=== PATIENT | male | born 1965 | race Hispanic/Latino ===

== ENCOUNTER 2017-02-02 06:25 | Emergency (ER) | payer OTHER ==
[~2017-02-02] VITALS: Ht 170.2 cm; Wt 91.4 kg
[~2017-02-02 06:25] MED LIST: NO HOME MEDS; PENICILLN VK500 MG OR; PERIDEX0.12 % MT; TRAMADOL HCL50 MG OR
[2017-02-02 06:56] LABS: HEMATOCRIT 42.6 % (39.0-50.0); HEMOGLOBIN 14.8 g/dl (14.0-18.0); IMMATURE GRANULOCYTES 0.1 % (0.0-1.0); MEAN CELL VOLUME 90.6 fL CALC (80.0-100.0); MEAN CORPUSCULAR HGB 31.5 pG CALC (26.0-32.0); MEAN CORPUSCULAR HGB CONC 34.7 g/L CALC (32.0-36.0); NEUT# 4.05 thou/uL (1.82-7.42); RED BLOOD COUNT 4.7 mill/uL (4.70-6.10); RED CELL DISTRI WIDTH 13.2 % (11.5-15.5)
[2017-02-02 06:58] LABS: URINE BILIRUBIN - DIPSTICK NEGATIVE (NEGATIVE); URINE BLOOD DIPSTICK NEGATIVE (NEGATIVE); URINE CLARITY SLIGHT CLOUDY; URINE COLOR YELLOW; URINE GLUCOSE - DIPSTICK NEGATIVE (NEGATIVE); URINE KETONE NEGATIVE (NEGATIVE); URINE LEUK ESTERASE NEGATIVE (NEGATIVE); URINE NITRITE - DIPSTICK NEGATIVE (Negative); URINE PROTEIN - DIPSTICK NEGATIVE (NEG-TRACE); URINE SPECIFIC GRAVITY >=1.030; URINE UROBILINOGEN - DIPSTICK 0.2 E.U./dL (0.2)
[2017-02-02 07:13] LABS: ALBUMIN 4.5 g/dL (3.2-5.0); ALKALINE PHOSPHATASE 82 u/l (38-126); AMYLASE 72 u/l (30-110); ANION GAP 19 (6-22 (CALC)); BILIRUBIN, TOTAL 0.6 mg/dL (0.0-1.4); BUN 22 mg/dL (9-20); BUN/CREATININE RATIO 31 (12-20 (CALC)); CALCIUM 9.6 mg/dL (8.4-10.2); CARBON DIOXIDE 21 mmol/l (22-30); CHLORIDE 104 mmol/l (95-108); CREATININE 0.7 mg/dL (0.7-1.3); GFR > 60 ML/MIN (>=60 (CALC)); GFR FOR AFR.AMER. > 60 ML/MIN (>=60 (CALC)); GLUCOSE 168 mg/dL (75-110); LIPASE 80 u/l (23-300); POTASSIUM 3.9 mmol/l (3.5-5.1); SGOT/AST 24 u/l (17-59); SGPT/ALT 36 u/l (21-72); SODIUM 140 mmol/l (137-146)
[2017-02-02 07:48] LABS: MYOGLOBIN 47 ng/mL (0 - 121)
[2017-02-02] MEDS ORDERED: TRAMADOL HYDROC50 MG PO (10:03)
[2017-02-02] MEDS ORDERED: ZOFRAN ODT4 MG PO (10:03)
[2017-02-02] MEDS ORDERED: NEXIUM40 M1 PO (10:03)
[2017-02-02 10:10] VITALS: BP 118/72
== END 2017-02-02 10:15 | disposition home or self-care (01) | DRG 392 ==
LOC: ED 06:25
PROVIDERS: Emergency Medicine
DX: R10.11 Right upper quadrant pain (principal); K82.9 Disease of gallbladder, unspecified

== ENCOUNTER 2020-12-01 07:13 | Emergency (ER) | payer OTHER ==
[~2020-12-01] VITALS: Ht 172.7 cm; Wt 92.7 kg
[~2020-12-01 07:13] MED LIST changes: +NEXIUM40 M1 PO; +TRAMADOL HYDROC50 MG PO; +ZOFRAN ODT4 MG PO
[2020-12-01 09:06] VITALS: BP 114/74
[2020-12-01] MEDS ORDERED: ZPAK PO (09:12)
== END 2020-12-01 09:38 | disposition home or self-care (01) | DRG 177 ==
LOC: ED 07:13
DX: U07.1 COVID-19 (principal); J12.82 Pneumonia due to coronavirus disease 2019

== ENCOUNTER 2020-12-04 10:50 | Inpatient (IN) | payer OTHER ==
[~2020-12-04] VITALS: Ht 172.7 cm; Wt 77.0 kg
[~2020-12-04 10:50] MED LIST changes: +ZPAK PO
--- NOTE | 2020-12-04 10:50 | NUR ---
PT TO ROOM 15 VIA WHEELCHAIR. BEDSIDE TRIAGE COMPLETED
[2020-12-04 11:18] LABS: HEMATOCRIT 41.2 % (39.0-50.0); HEMOGLOBIN 14.4 g/dl (14.0-18.0); IMMATURE GRANULOCYTES 0.3 % (0.0-5.0); MEAN CELL VOLUME 87.8 fL CALC (80.0-100.0); MEAN CORPUSCULAR HGB 30.7 pG CALC (26.0-32.0); NEUT# 6.23 thou/uL (1.82-7.42); RED BLOOD COUNT 4.69 mill/uL (4.70-6.10); RED CELL DISTRI WIDTH 12.2 % (11.5-15.5)
--- NOTE | 2020-12-04 11:30 | NUR ---
PT SITTING SEMI-UPRIGHT IN BED, NO CONCERNS VOICED.
[2020-12-04 11:35] LABS: ALBUMIN 3.6 g/dL (3.2-5.0); ALKALINE PHOSPHATASE 65 u/l (38-126); ANION GAP 16 (6-22 (CALC)); BILIRUBIN, TOTAL 0.5 mg/dL (0.0-1.4); BUN 11 mg/dL (9-20); BUN/CREATININE RATIO 18 (12-20 (CALC)); CARBON DIOXIDE 22 mmol/l (22-30); CHLORIDE 96 mmol/l (95-108); CREATININE 0.6 mg/dL (0.7-1.3); GFR > 60 ML/MIN (>=60 (CALC)); GFR FOR AFR.AMER. > 60 ML/MIN (>=60 (CALC)); LIPASE 251 u/l (23-300); POTASSIUM 3.8 mmol/l (3.5-5.1); SGOT/AST 39 u/l (17-59); SODIUM 130 mmol/l (137-146); TOTAL PROTEIN 7.3 g/dL (6.3-8.2)
[2020-12-04 11:36] LABS: D-DIMER 0.74 mg/L (0.19-0.60)
[2020-12-04 11:39] LABS: ACT PARTIAL THROMBO TIME 29.2 SECONDS (20.0-32.5); PROTHROMBIN TIME 10.4 SECONDS (9.0-12.5)
--- NOTE | 2020-12-04 12:25 | NUR ---
IV MEDS INFUSING WITHOUT DIFFICULTY, STABLE ON MONITOR. AT BEDSIDE. CALL LIGHT WITHIN REACH.
--- NOTE | 2020-12-04 13:43 | NUR ---
IV MEDS COMPLETED. PT REMAINS STABLE ON MONITOR. PENDING ADMISSION TO [facility].
--- NOTE | 2020-12-04 13:49 | NUR ---
REPORT GIVEN TO ERIKA TONEY ON [facility]. PT ADMITTED TO [facility].
--- NOTE | 2020-12-04 14:05 | NUR ---
PT ARRIVED TO FLOOR VIA WHEELCHAIR ACCOMPANIED BY ER STAFF. PT ALERT AND ORIENTED X4. NO APPARENT DISTRESS NOTED. RESPIRATIONS EVEN AND UNLABORED. SOB WITH EXERTION. NON-PRODUCTIVE COUGH NOTED. O2 @ 2L/M VIA NC. PT AMBULATORY FROM CHAIR TO BED. DISCUSSED POC AND SAFETY PRECAUTIONS. PT VERBALIZED UNDERSTANDING. ENCOURAGED AND EDUCATED PT TO PRONE AND GET OOB FOR MEALS. IV SITES APPEAR HEALTHY. [place] IN PLACE. ORIENTED TO ROOM AND CALL LIGHT SYSTEM. PT DENIES ANY PAIN OR DISCOMFORT. NO CURRENT WANTS OR NEEDS. CALL LIGHT WITHIN REACH. WILL CONTINUE TO MONITOR.
[2020-12-04 14:40] VITALS: BP 115/68
--- NOTE | 2020-12-04 16:27 | NUR ---
REMDESIVIR INFUSING COMPLETE. PT TOLERATED WELL. PT PRONING AT THIS TIME. O2 @ 2L/M CARYL NC. IVF INFUSING WITHOUT DIFFICULTY. CALL LIGHT WITHIN REACH. WILL CONTINUE TO MONITOR.
--- NOTE | 2020-12-04 17:56 | NUR ---
CALLED FOR UPDATE, PASSCODE VERIFIED. UPDATED AT THIS TIME.
--- NOTE | 2020-12-04 20:43 | NUR ---
PATIENT LAYING SUPINE AT THIS TIME. RESPIRATIONS NONLABORED. O2 VIA N/C 2L IN PLACE. DENIES PAIN. HEART RATE REGULAR. ASSESSMENT COMPLETED AND CHARTED. IVF INFUSING ORDERED. ON TELEMETRY. BED IN LOW POSITION. CALL LIGHT WITHIN REACH.
[2020-12-04 23:52] VITALS: BP 114/72
--- NOTE | 2020-12-05 01:24 | NUR ---
THIS NURSE WAS WALKING THROUGH CHECKING ON PATIENT'S WHEN WAS NOTICED PATIENT GRABBING FOR EMESIS BAG. PATIENT UP AWAKE AND COUGHING. NO EMESIS. COOL COMPRESSES TO HEAD AND NECK GIVEN FOR COMFORT. IF PATIENT CONDITION NOT IMPROVED, WILL CALL MD FOR [employer] [employer].
[2020-12-05 04:06] VITALS: BP 106/64
--- NOTE | 2020-12-05 05:00 | NUR ---
NO NEW COMPLAINTS OF NAUSEA. RESTING QUIETLY SUPINE. BED IN LOW POSITION. CALL LIGHT WITHIN REACH.
[2020-12-05 06:20] LABS: HEMATOCRIT 42.2 % (39.0-50.0); HEMOGLOBIN 14.4 g/dl (14.0-18.0); IMMATURE GRANULOCYTES 0.4 % (0.0-5.0); MEAN CELL VOLUME 91.1 fL CALC (80.0-100.0); MEAN CORPUSCULAR HGB 31.1 pG CALC (26.0-32.0); MEAN CORPUSCULAR HGB CONC 34.1 g/dL CAL (32.0-36.0); NEUT# 6.29 thou/uL (1.82-7.42); RED BLOOD COUNT 4.63 mill/uL (4.70-6.10); RED CELL DISTRI WIDTH 12.5 % (11.5-15.5)
[2020-12-05 06:36] LABS: ALBUMIN 3.2 g/dL (3.2-5.0); ALKALINE PHOSPHATASE 55 u/l (38-126); ANION GAP 14 (6-22 (CALC)); BILIRUBIN, TOTAL 0.5 mg/dL (0.0-1.4); BUN 13 mg/dL (9-20); BUN/CREATININE RATIO 27 (12-20 (CALC)); CARBON DIOXIDE 22 mmol/l (22-30); CHLORIDE 103 mmol/l (95-108); CREATININE 0.5 mg/dL (0.7-1.3); GFR > 60 ML/MIN (>=60 (CALC)); GFR FOR AFR.AMER. > 60 ML/MIN (>=60 (CALC)); POTASSIUM 4.3 mmol/l (3.5-5.1); SGOT/AST 42 u/l (17-59); SODIUM 134 mmol/l (137-146); TOTAL PROTEIN 6.9 g/dL (6.3-8.2)
--- NOTE | 2020-12-05 06:55 | NUR ---
REPORT RECEIVED FROM ASHLEY SCHUMACHER
[2020-12-05 07:00] LABS: C-REACTIVE PROTEIN 16.5 mg/dL (0-0.9)
--- NOTE | 2020-12-05 09:00 | NUR ---
PT OOB RESTING IN RECLINER,A&O X3;VS OBTAINED AND ASSESSMENT COMPLETED;PT DENIES ANY CURRENT PAIN OR DISCOMFORTS,PAIN SCALE AND REPORTING EDUCATED;RESPIRATIONS EVEN AND UNLABORED ON O2 @ 2L VIA NC, CLEAR/DIMINISHED LUNG SOUNDS NOTED;ABDOMEN SOFT ON PALPATION AND ACTIVE IN ALL 4 QUADRANTS;STRONG PEDAL PULSES;SKIN INTACT;TELE MONITORING IN PLACE;#20G TO RH INFUSING NS @ 100ML/HR,SITE APPEARS HEALTHY;#20G TO LAC ALSO FLUSHED AND PATENT,SITE APPEARS HEALTHY;PT DENIES ANY ADDITIONAL NEEDS AND IS ENCOURAGED TO CALL FOR ASSISTANCE IF NEEDED;PT REMAINS IN AIR/CONTACT PRECAUTIONS DUE TO COVID19 DX;ALL SAFETY PRECAUTIONS REMAIN IN PLACE WITH BED IN THE LOWEST POSITION AND CALL LIGHT IN REACH;WILL CONTINUE TO MONITOR
[2020-12-05 09:08] VITALS: BP 109/71
--- NOTE | 2020-12-05 10:32 | NUR ---
AT BEDSIDE DISCUSSING POC.
[2020-12-05 10:37] VITALS: BP 108/64
--- NOTE | 2020-12-05 11:25 | NUR ---
PT APPEARS TO BE SLEEPING IN LEFT SIDE LAYING POSITION;RESPIRATIONS APPEAR EVEN AND UNLABORED ON O2 @ 2L VIA NC;NO S/S OF DISTRESS NOTED;TELE MONITORING IN PLACE;IV FLUIDS CONTINUE AT 10ML/HR;ALL SAFETY PRECAUTIONS REMAIN IN PLACE WITH CALL LIGHT IN REACH;WILL CONTINUE TO MONITOR
[2020-12-05 15:08] VITALS: BP 98/70
--- NOTE | 2020-12-05 15:25 | NUR ---
PT APPEARS TO BE SLEEPING IN SEMI FOWLERS POSITION;RESPIRATIONS EVEN AND UNLABORED ON O2 @ 2L VIA NC;NO S/S OF DISTRESS NOTED;TELE MONITORING IN PLACE;IV SITE PATENT INFUSING NS WITH EASE PER ORDER;ALL SAFETY PRECAUTIONS REMAIN IN PLACE WITH BED IN THE LOWEST POSITION AND CALL LIGHT IN REACH;WILL CONTINUE TO MONITOR
[2020-12-05 18:30] VITALS: BP 119/66
--- NOTE | 2020-12-05 20:02 | NUR ---
PATIENT LAYS WITH HOB ABOUT 15 DEGREES. ALERT AND ORIENTED X4. NO COMPLAINTS. NO SOB NOTED. O2 SAT ON 2 L/MIN NC IS 90%, TITRATED TO 3 L/MIN AND IS 92%. NURSE ASSESSMENT PERFORMED. IV X2 IS INTACT AND NS INFUSING PROPERLY. POC DISCUSSED, PATIENT UNDERSTANDS AND AGREES. WAS INSTRUCTED TO LAY PRONE, REPORTS HE SITS IN CHAIR DURING THE DAY AND TRIES TO LAY PRONE AT NIGHT AND DURING DAY 1-2 HRS. NO NEEDS AT THIS TIME. CALL LIGHT WITHIN REACH.
--- NOTE | 2020-12-05 21:42 | NUR ---
PATIENT LAYS ON HIS LEFT SIDE, O2 SAT 95% ON 3 L/MIN NC, NO RESPIRATORY DISTRESS NOTED, NO SOB NOTED. COUGH MED PROVIDED TONIGHT. ALSO CALLED HIS DAUGHTER CANDY SINCE SHE HAD CALLED EARLIERWHILE HE WAS SLEEPING, NOW SPEAKS TO DAUGHTER CANDY. NO EEDS AT THIS TIME. CALL LIGHT WITHIN REACH.
[2020-12-05 23:40] VITALS: BP 93/53
--- NOTE | 2020-12-06 01:05 | NUR ---
PATIENT LAYS ON HIS R-SIDE, RESTS WITH EYES CLOSED. CALL LIGHT WITHIN REACH.
[2020-12-06 04:00] VITALS: BP 109/59
--- NOTE | 2020-12-06 04:10 | NUR ---
NURSE INFORMATICS EDUCATOR IN ROOM FOR AM LAB WORK.
[2020-12-06 05:09] LABS: HEMOGLOBIN 14.3 g/dl (14.0-18.0); MEAN CELL VOLUME 90.3 fL CALC (80.0-100.0); MEAN CORPUSCULAR HGB 30.8 pG CALC (26.0-32.0); RED BLOOD COUNT 4.65 mill/uL (4.70-6.10); RED CELL DISTRI WIDTH 12.7 % (11.5-15.5)
[2020-12-06 05:20] LABS: ANION GAP 15 (6-22 (CALC)); BUN 19 mg/dL (9-20); BUN/CREATININE RATIO 37 (12-20 (CALC)); CARBON DIOXIDE 19 mmol/l (22-30); CHLORIDE 106 mmol/l (95-108); CREATININE 0.5 mg/dL (0.7-1.3); GFR > 60 ML/MIN (>=60 (CALC)); GFR FOR AFR.AMER. > 60 ML/MIN (>=60 (CALC)); SODIUM 136 mmol/l (137-146)
--- NOTE | 2020-12-06 05:22 | NUR ---
PATIENT SITS IN RECLINER, NO ACUTE DISTRESS SHOWN. O2 SAT 92% ON 3 L/MIN NC. NO COMPLAINTS OR NEEDS AT THIS TIME. CALL LIGHT WITHIN REACH.
--- NOTE | 2020-12-06 07:10 | NUR ---
REPORT RECEIVED FROM MICHAEL
[2020-12-06 08:00] VITALS: BP 104/63
--- NOTE | 2020-12-06 09:00 | NUR ---
PT RESTING IN RECLINER,A&O X3;VS OBTAINED AND ASSESSMENT COMPLETED;PT DENIES ANY CURRENT PAIN OR DISCOMFORTS,PAIN SCALE AND REPORTING EDUCATED;RESPIRATIONS EVEN AND UNLABORED ON 02 @ 3L VIA NC,CLEAR/DIMINISHED LUNG SOUNDS NOTED;ABDOMEN SOFT ON PALPATION AND ACTIVE IN ALL 4 QUADRANTS;STRONG PEDAL PULSES;SKIN INTACT;TELE MONITORING IN PLACE;#20G TO LAC FLUSHED AND PATENT,#20G TO RH INFUSING NS @ 10ML/HR,SITE APPEARS HEALTHY;PT REMAINS IN AIR/CONTACT PRECAUTIONS DUE TO COVID19 DX;PT DENIES ANY ADDITIONAL NEEDS AND IS ENCOURAGED TO CALL FOR ASSISTANCE IF NEEDED;FALL PRECAUTIONS IN PLACE WITH BED IN THE LWOEST POSITION AND CALL LIGHT IN REACH;WILL CONTINUE TO MONITOR
--- NOTE | 2020-12-06 10:03 | NUR ---
AT BEDSIDE DISCUSSING POC.
[2020-12-06 10:26] VITALS: BP 101/63
--- NOTE | 2020-12-06 11:30 | NUR ---
PT RESTING IN SEMI FOWLERS POSITION;RESPIRATIONS EVEN AND UNLABORED ON O2 @ 3L VIA NC;PT DENIES ANY CURRENT PAIN OR DISCOMFORTS;TELE MONITORING IN PLACE;IV SITE PATENT INFUSING NS WITH EASE PER ORDER;ALL SAFETY PRECAUTIONS REMAIN IN PLACE WITH BED IN THE LOWEST POSITION AND CALL LIGHT IN REACH;WILL CONTINUE TO MONITOR
[2020-12-06 15:15] VITALS: BP 113/65
--- NOTE | 2020-12-06 16:15 | NUR ---
PT RESTING IN SEMI FOWLERS POSITION WATCHING TV;RESPIRATIONS EVEN AND UNLABORED ON O2 @ 3L VIA NC;PT DENIES ANY CURRENT PAIN OR DISCOMFORTS;TELE MONITORING IN PLACE;IV SITE PATENT;PT ENCOURAGED TO CALL FOR ASSISTANCE IF NEEDED;CALL LIGHT IN REACH;WILL CONTINUE TO MONITOR
[2020-12-06 19:00] VITALS: BP 101/40
--- NOTE | 2020-12-06 20:45 | NUR ---
PATIENT IS AWAKE, ORIENTED X4. C/O LEG "JUMPS" ALL OF A SUDDEN. MEND PERFORMED, NEGATIVE, NO DROOP NOTED, SPEECH IS CLEAR, NO DRIFT ON UPPER OR LOWER EXTREMETIES, NO DECREASED SENSATION BILATERALLY, PEDIATRIC DENTIST MODERATE EQUAL BILATERALLY, ANSWERS QUESTIONS APPROPRIATELY. IV X2 INTACT. SWALLOWS MEDS WITHOUT DIFFICULTY. NO SOB NOTED, ON 3 L/MIN NC.
[2020-12-06 23:49] VITALS: BP 97/50
--- NOTE | 2020-12-07 01:44 | NUR ---
[facility] CALLED TO REPORT PATIENT HR [id number]. CHECKED PATIENT, LAYS ON HIS LEFT SIDE. AWAKENS WHEN SPOKEN TO. NO COMPLAINTS OR NEEDS AT THIS TIME. CALL LIGHT WITHIN REACH.
[2020-12-07 03:57] VITALS: BP 95/47
[2020-12-07 05:45] LABS: ALBUMIN 2.9 g/dL (3.2-5.0); ALKALINE PHOSPHATASE 54 u/l (38-126); ANION GAP 14 (6-22 (CALC)); BUN 17 mg/dL (9-20); BUN/CREATININE RATIO 34 (12-20 (CALC)); C-REACTIVE PROTEIN 4.3 mg/dL (0-0.9); CARBON DIOXIDE 20 mmol/l (22-30); CHLORIDE 107 mmol/l (95-108); CREATININE 0.5 mg/dL (0.7-1.3); GFR > 60 ML/MIN (>=60 (CALC)); GFR FOR AFR.AMER. > 60 ML/MIN (>=60 (CALC)); POTASSIUM 3.8 mmol/l (3.5-5.1); SGOT/AST 23 u/l (17-59); SODIUM 137 mmol/l (137-146); TOTAL PROTEIN 6.4 g/dL (6.3-8.2)
[2020-12-07 05:46] LABS: BILIRUBIN, TOTAL 0.2 mg/dL (0.0-1.4)
--- NOTE | 2020-12-07 05:47 | NUR ---
PATIENT O2 WEANED TO 2.5 L/MIN, O2 SAT 91%, PATIENT DOES REPORT HE BECOMES SOB WHEN TRANSFERRING TO RESTROOM OR FROM BED TO RECLINER. NO NEEDS AT THIS TIME. CALL LIGHT WITHIN REACH.
[2020-12-07 05:52] LABS: HEMATOCRIT 39.7 % (39.0-50.0); HEMOGLOBIN 13.4 g/dl (14.0-18.0); IMMATURE GRANULOCYTES 0.8 % (0.0-5.0); MEAN CELL VOLUME 91.7 fL CALC (80.0-100.0); MEAN CORPUSCULAR HGB 30.9 pG CALC (26.0-32.0); MEAN CORPUSCULAR HGB CONC 33.8 g/dL CAL (32.0-36.0); NEUT# 8.08 thou/uL (1.82-7.42); RED BLOOD COUNT 4.33 mill/uL (4.70-6.10); RED CELL DISTRI WIDTH 12.8 % (11.5-15.5)
[2020-12-07 07:30] VITALS: BP 103/62
--- NOTE | 2020-12-07 07:30 | NUR ---
PATIENT SITTING IN CHAIR AT THIS TIME. PAITENT O2 ON AT 2 1/2 LITERS AND SPO2 AT THIS TIME. LUNG FIELD ARE DIMINISHED IN LOWER BASIS. PATIENT DENIES ANY PAIN AT THIS TIME. CAKE PRESS OPERATOR DONE SEE INTERVENTIONS TELE MONITOR ON AND BEING MONITORED BY ED. CALL LIGHT WITHIN REACH AT THIS TIME.
--- NOTE | 2020-12-07 10:54 | NUR ---
REPORTED TO THIS NURSE THAT PULSE RATE IS 44 BEATS PER MINUTE. PROVIDER DR. PRIEST NOTIFIED AT THIS TIME. DR. PRIEST STATE JUST MONITOR PATIENT.
[2020-12-07 10:55] VITALS: BP 105/60
--- NOTE | 2020-12-07 11:10 | NUR ---
PER ED PATIENT HEART RATE IS SUSTAINING IN THE 30'S AT THIS TIME. INFORMATION REPORTED BACK TO [facility] AT THIS TIME AND ORDER GIVEN TO OBTAIN A EKG.
--- NOTE | 2020-12-07 11:36 | NUR ---
PATIENT LAYING IN BED AT THIS TIME AND RESPIRTORY IN TO DO EKG. PATIENT DENIES ANY PAIN AT THIS TIME. PATIENT DENIES ANY SHORTNESS OF BREATH AND O2 REMAINS ON AT 2.5 LITERS. SIDERAILS ARE UP CALL LIGHT IS WITHIN REACH.
[2020-12-07 14:45] VITALS: BP 104/58
--- NOTE | 2020-12-07 16:18 | NUR ---
PATIENT LAYING IN BED AT THIS TIME. PATIENT DENIES ANY NEED AND OR PAIN. PATIENTS REMAINS ON 02 AT 2.5 LITERS AND IS STATING 95%. PATIENT SIDERAILS ARE UP X 2 AND CALL LIGHT IS WITHIN REACH. PATIENT TELE ON AND BEING MONITORED BY ED. SIDERAILS ARE UP AND CALL LIGHT IS WITHIN REACH.
[2020-12-07 19:00] VITALS: BP 108/61
--- NOTE | 2020-12-07 20:07 | NUR ---
PATIENT UP IN CHAIR. 02 N/C IN PLACE 3L. REPORTS FEELING MUCH BETTER SINCE ADMISSION. DENIES PAIN AT THIS TIME. ON TELEMETRY. HR SLOW AND REGULAR. RESPIRATIONS NONLABORED. ASSESSMENT COMPLET AND CHARTED. BED IN LOW POSITION. CALL LIGHT WITHIN REACH.
--- NOTE | 2020-12-07 20:59 | NUR ---
TELEMETRY CALLED AND REPORTED HEART RATE 36. PATIENT REPORTS FEELING FINE. NO DIZZINESS, NO CHEST DISCOMFORT. PM MEDICATIONS GIVEN. TOLERATED WELL. BED IN LOW POSITION. CALL LIGHT WITHIN REACH.
[2020-12-07 23:30] VITALS: BP 112/66
--- NOTE | 2020-12-08 02:07 | NUR ---
PATIENT UP TO BATHROOM WITH STANDBY ASSIST. NO SOB OBSERVED AT THIS TIME.
[2020-12-08 03:30] VITALS: BP 110/74
[2020-12-08 04:58] LABS: HEMATOCRIT 38.4 % (39.0-50.0); HEMOGLOBIN 13.2 g/dl (14.0-18.0); MEAN CELL VOLUME 90.6 fL CALC (80.0-100.0); MEAN CORPUSCULAR HGB 31.1 pG CALC (26.0-32.0); MEAN CORPUSCULAR HGB CONC 34.4 g/dL CAL (32.0-36.0); RED BLOOD COUNT 4.24 mill/uL (4.70-6.10); RED CELL DISTRI WIDTH 12.5 % (11.5-15.5)
[2020-12-08 05:09] LABS: ANION GAP 12 (6-22 (CALC)); BUN 19 mg/dL (9-20); BUN/CREATININE RATIO 32 (12-20 (CALC)); CARBON DIOXIDE 22 mmol/l (22-30); CHLORIDE 105 mmol/l (95-108); CREATININE 0.6 mg/dL (0.7-1.3); GFR > 60 ML/MIN (>=60 (CALC)); GFR FOR AFR.AMER. > 60 ML/MIN (>=60 (CALC)); MAGNESIUM 1.9 mg/dL (1.6-2.3); SODIUM 135 mmol/l (137-146)
[2020-12-08 07:54] VITALS: BP 124/77
--- NOTE | 2020-12-08 08:16 | NUR ---
SHIFT CHANGE REPORT, PT AWAKE ALERT AND ORIENTED SITTING UP IN RECLINER, C/O PAIN TO CHEST AND BACK AGGRAVATED BY COUGHING, O2 @ 3L VIA NC IN PLACE, TELE MONITOR IN PLACE, CALL OCAMPO IN REACH.
[2020-12-08 11:02] VITALS: BP 108/62
--- NOTE | 2020-12-08 12:00 | NUR ---
SITTING UP IN RECLINER, MEDICAL TEAM ROUNDED, ALL NEEDS ADDRESSED, CALL OCAMPO IN REACH.
[2020-12-08 14:56] VITALS: BP 123/68
[2020-12-08 19:01] VITALS: BP 119/64
[2020-12-09] VITALS: BP 122/57
--- NOTE | 2020-12-09 00:54 | NUR ---
NO CHANGES NOTED. RESTING IN BED. NO ACUTE DISTRESS NOTED.
--- NOTE | 2020-12-09 04:13 | NUR ---
NO ACUTE DISTRESS OBSERVED. BED IN LOW POSITION. CALL LIGHT WITHIN REACH.
[2020-12-09 04:39] LABS: HEMATOCRIT 40.7 % (39.0-50.0); HEMOGLOBIN 14.1 g/dl (14.0-18.0); IMMATURE GRANULOCYTES 1.7 % (0.0-5.0); MEAN CELL VOLUME 89.5 fL CALC (80.0-100.0); MEAN CORPUSCULAR HGB CONC 34.6 g/dL CAL (32.0-36.0); NEUT# 8.17 thou/uL (1.82-7.42); RED BLOOD COUNT 4.55 mill/uL (4.70-6.10); RED CELL DISTRI WIDTH 12.5 % (11.5-15.5)
[2020-12-09 04:59] LABS: ALBUMIN 3.1 g/dL (3.2-5.0); ALKALINE PHOSPHATASE 53 u/l (38-126); ANION GAP 12 (6-22 (CALC)); BUN 16 mg/dL (9-20); BUN/CREATININE RATIO 31 (12-20 (CALC)); C-REACTIVE PROTEIN 2.6 mg/dL (0-0.9); CARBON DIOXIDE 23 mmol/l (22-30); CHLORIDE 100 mmol/l (95-108); CREATININE 0.5 mg/dL (0.7-1.3); GFR > 60 ML/MIN (>=60 (CALC)); GFR FOR AFR.AMER. > 60 ML/MIN (>=60 (CALC)); SGOT/AST 21 u/l (17-59); SODIUM 131 mmol/l (137-146); TOTAL PROTEIN 6.6 g/dL (6.3-8.2)
[2020-12-09 05:00] VITALS: BP 119/61
[2020-12-09 05:02] LABS: BILIRUBIN, TOTAL 0.3 mg/dL (0.0-1.4)
--- NOTE | 2020-12-09 08:16 | NUR ---
SHIFT CHANGE REPORT, PT AWAKE ALERT AND ORIENTED SITTING UP IN RECLINER, NO C/O PAIN/DISCOMFORT, O2 @ 3L VIA NC IN PLACE, TELE MONITOR IN PLACE, CALL OCAMPO IN REACH AND BED LOCKED IN LOWEST POSITION.
[2020-12-09 09:13] VITALS: BP 105/63
[2020-12-09 11:07] VITALS: BP 105/63
--- NOTE | 2020-12-09 12:00 | NUR ---
HAVING MEAL, MEDICAL TEAM ROUNDED AND DISCUSSED PLAN OF CARE, PT WILL NOT BE D/C HOME TODAY
[2020-12-09 15:00] VITALS: BP 114/69
--- NOTE | 2020-12-09 16:35 | NUR ---
SITTING UP IN RECLINER AT THIS TIME, STATES HE FEELS MUCH BETTER, ALL NEEDS ADDRESSED.
[2020-12-09 19:00] VITALS: BP 107/55
--- NOTE | 2020-12-09 20:04 | NUR ---
PHYSICAL ASSESMENT COMPLETE. PT CURRENTLY DENIES PAIN OR DISCOMFORT. SCHEDULED MEDICATIONS AND PRN MEDICATION ADMINISTERED, SEE E-MAR. PT DENIES ANY NEEDS AT THIS TIME. PLAN OF CARE REVIEWED, PT DENIES QUESTIONS, VERBALIZES UNDERSTANDING. ITEMS WITHIN REACH, BED LOCKED IN LOW POSITION W/ BEDRAILS UP X2. CALL OCAMPO WITHIN REACH, AGREES TO CALL PRN.
--- NOTE | 2020-12-09 23:46 | NUR ---
PT LAYING IN BED WITH EYES CLOSED, APPEARS TO BE SLEEPING, APPEARS COMFORTABLE AND IN NO DISTRESS. RESPIRATIONS REGULAR AND UNLABORED. ITEMS REMAIN WITHIN REACH, CALL OCAMPO REMAINS WITHIN REACH. BED REMAINS LOCKED AND IN LOW POSITION WITH BEDRAILS UP X2. WILL CONTINUE TO MONITOR.
[2020-12-10 00:50] VITALS: BP 120/69
--- NOTE | 2020-12-10 04:13 | NUR ---
PT RESTING IN BED, NO SIGNS OF DISTRESS NOTED, ON 3 LITERS OF 02 BREATHING NORMAL.
[2020-12-10 05:15] VITALS: BP 120/70
--- NOTE | 2020-12-10 07:00 | NUR ---
SSHIT CHANGE REPORT, PT AWAKE ALERT AND ORIENTED SITTING UP IN RECLINER, NO C/O DISCOMFORT, O2 @ 3L VIA NC IN PLACE, TELE MONITOR IN PLACE,ANTICIPATING GOING HOME TODAY BUT INFORMED MD WILL MAKE THAT DECISION WHEN HE ROUNDS TODAY, CALL OCAMPO IN REACH, ALL NEEDS ADDRESSED.
[2020-12-10 09:27] VITALS: BP 104/63
[2020-12-10 11:13] VITALS: BP 112/64
[2020-12-10] MEDS ORDERED: DEXAMETHASON6 MG PO (11:29)
[2020-12-10] MEDS ORDERED: ASPIRIN REGULA325 M1 PO (11:30)
[2020-12-10] MEDS ORDERED: ROBITUSSIN AC10 ML PO (11:31)
--- NOTE | 2020-12-10 12:25 | NUR ---
REPORT RECEIVED FROM ASHLEY PAGE
--- NOTE | 2020-12-10 13:36 | NUR ---
Discharge instructions given. Patient verbalizes understanding of same. Discharged in stable condition via Wheelchair to Home with spouse. All belongings sent with pt. PT TRANSPORTED TO [facility] IN STABLE CONDITION VIA WHEELCHAIR ACCOMPANIED BY SUNIL FRANCO. ALL BELONGINGS LEFT WITH PT INCLUDING HOME OXYGEN TANK.SPOUSE TO TRANSPORT PT HOME.
== END 2020-12-10 13:36 | disposition home or self-care (01) | DRG 177 ==
LOC: ED 10:50 → ED-I 11:34 → ED 11:49 → MS2 11:50
PROVIDERS: Nurse Practitioner; ADMIT Hospitalist; ATTEND Hospitalist
PROC: XW033E5 Introduction of Remdesivir Anti-infective into Peripheral Vein, Percutaneous Approach, New Technology Group 5 (ICD-10-PCS; principal; 2020-12-04)
DX: U07.1 COVID-19 (principal); J12.82 Pneumonia due to coronavirus disease 2019; J96.01 Acute respiratory failure with hypoxia; E87.1 Hypo-osmolality and hyponatremia; R00.1 Bradycardia, unspecified
CPT/HCPCS: J1650; Q9967

== ENCOUNTER 2022-05-09 18:31 | Emergency (ER) | payer OTHER ==
[~2022-05-09] VITALS: Ht 172.7 cm; Wt 94.5 kg
[2022-05-09] VITALS (14 sets, daily range): BP systolic 123–147; BP diastolic 77–96
[~2022-05-09 18:31] MED LIST changes: +ASPIRIN REGULA325 M1 PO; +DEXAMETHASON6 MG PO; +ROBITUSSIN AC10 ML PO
[2022-05-09 21:58] LABS: HEMOGLOBIN 14.4 g/dl (14.0-18.0); IMMATURE GRANULOCYTES 0.2 % (0.0-5.0); MEAN CELL VOLUME 92.3 fL CALC (80.0-100.0); MEAN CORPUSCULAR HGB 32.4 pG CALC (26.0-32.0); MEAN CORPUSCULAR HGB CONC 35.1 g/dL CAL (32.0-36.0); NEUT# 7.22 thou/uL (1.82-7.42); RED BLOOD COUNT 4.44 mill/uL (4.70-6.10)
[2022-05-09 22:10] LABS: ALKALINE PHOSPHATASE 74 u/l (38-126); ANION GAP 12 (6-22 (CALC)); BUN 14 mg/dL (9-20); BUN/CREATININE RATIO 18 (12-20 (CALC)); CARBON DIOXIDE 26 mmol/l (22-30); CHLORIDE 102 mmol/l (95-108); CREATININE 0.8 mg/dL (0.7-1.3); GFR FOR AFR.AMER. > 60 ML/MIN (>=60 (CALC)); GFR OTHER RACES > 60 ML/MIN (>=60 (CALC)); SGOT/AST 28 u/l (17-59); SODIUM 137 mmol/l (137-146); TOTAL PROTEIN 7.9 g/dL (6.3-8.2)
[2022-05-09 22:14] LABS: ALBUMIN 4.3 g/dL (3.2-5.0); BILIRUBIN, TOTAL 0.5 mg/dL (0.0-1.4)
[2022-05-09] MEDS ORDERED: BACTRIM DS1 TAB PO (22:43)
[2022-05-09] MEDS ORDERED: KEFLEX500 MG PO (22:43)
[2022-05-09] MEDS ORDERED: NAPROXEN500 MG PO (22:43)
[2022-05-10] VITALS: BP 115/78
== END 2022-05-10 | disposition home or self-care (01) | DRG 603 ==
LOC: ED 18:31
PROVIDERS: Emergency Medicine
DX: L03.116 Cellulitis of left lower limb (principal)

== ENCOUNTER 2022-11-23 12:05 | Emergency (ER) | payer OTHER ==
[~2022-11-23] VITALS: Ht 172.7 cm; Wt 90.0 kg
[2022-11-23] VITALS (8 sets, daily range): BP systolic 115–141; BP diastolic 59–103
[~2022-11-23 12:05] MED LIST changes: +BACTRIM DS1 TAB PO; +KEFLEX500 MG PO; +NAPROXEN500 MG PO
[2022-11-23 13:32] LABS: BASO% 0.4 % (0-3); EOS% 2.8 % (0-8); HEMATOCRIT 42.6 % (39.0-50.0); HEMOGLOBIN 14.4 g/dl (14.0-18.0); IMMATURE GRANULOCYTES 0.3 % (0.0-5.0); LYMPH% 22.2 % (15-41); MEAN CELL VOLUME 90.8 fL CALC (80.0-100.0); MEAN CORPUSCULAR HGB 30.7 pG CALC (26.0-32.0); MEAN CORPUSCULAR HGB CONC 33.8 g/dL CAL (32.0-36.0); MONO% 7.4 % (2-13); NEUT# 4.95 thou/uL (1.82-7.42); NEUT% 66.9 % (42-76); RED BLOOD COUNT 4.69 mill/uL (4.70-6.10); RED CELL DISTRI WIDTH 12.7 % (11.5-15.5)
[2022-11-23 13:37] LABS: ALBUMIN 4.6 g/dL (3.2-5.0); ALKALINE PHOSPHATASE 82 u/l (38-126); ANION GAP 15 (6-22 (CALC)); BILIRUBIN, TOTAL 0.5 mg/dL (0.2-1.3); BUN 17 mg/dL (9-20); BUN/CREATININE RATIO 26 (12-20 (CALC)); CARBON DIOXIDE 21 mmol/l (22-30); CHLORIDE 106 mmol/l (95-108); CREATININE 0.7 mg/dL (0.7-1.3); GFR FOR AFR.AMER. > 60 ML/MIN (>=60 (CALC)); GFR OTHER RACES > 60 ML/MIN (>=60 (CALC)); POTASSIUM 3.9 mmol/l (3.5-5.1); SGOT/AST 34 u/l (17-59); SODIUM 138 mmol/l (137-146); TOTAL PROTEIN 8.1 g/dL (6.3-8.2)
[2022-11-23] MEDS ORDERED: METHOCARBAMOL500 MG PO (14:50)
[2022-11-23] MEDS ORDERED: NAPROXEN500 MG PO (14:50)
[2022-11-23] MEDS ORDERED: MEDDOSEPAK PO (14:50)
== END 2022-11-23 15:06 | disposition home or self-care (01) | DRG 552 ==
LOC: ED 12:05
PROVIDERS: Nurse Practitioner
DX: M54.6 Pain in thoracic spine (principal)

== ENCOUNTER 2024-07-16 18:38 | Emergency (ER) | payer OTHER ==
[~2024-07-16] VITALS: Ht 172.7 cm; Wt 92.0 kg
[~2024-07-16 18:38] MED LIST changes: +MEDDOSEPAK PO; +METHOCARBAMOL500 MG PO
[2024-07-16] MEDS ORDERED: ACETAMINOPHEN 500 MG TAB PO ONE (19:15)
[2024-07-16] MEDS ORDERED: traMADol HCL 50 MG/TAB PO ONE (19:15)
[2024-07-16] MEDS ORDERED: KETOROLAC TROMETHAMINE 30 MG/ML SDV IV ONE (19:15)
[2024-07-16] MEDS ORDERED: methylPREDNISolone SODIUM SUCC 125 MG/2 ML SDV IV ONE (19:15)
[2024-07-16 19:36] LABS: BASO% 0.3 % (0-3); EOS% 3.6 % (0-8); HEMATOCRIT 40.6 % (39.0-50.0); HEMOGLOBIN 13.7 g/dl (14.0-18.0); IMMATURE GRANULOCYTES 0.1 % (0.0-5.0); LYMPH% 23.7 % (15-41); MEAN CELL VOLUME 91.4 fL CALC (80.0-100.0); MEAN CORPUSCULAR HGB 30.9 pG CALC (26.0-32.0); MEAN CORPUSCULAR HGB CONC 33.7 g/dL CAL (32.0-36.0); MONO% 7.3 % (2-13); NEUT# 6.19 thou/uL (1.82-7.42); RED BLOOD COUNT 4.44 mill/uL (4.70-6.10); RED CELL DISTRI WIDTH 12.8 % (11.5-15.5)
[2024-07-16 19:47] LABS: CREATININE 0.6 mg/dL (0.7-1.3); POTASSIUM 3.8 mmol/l (3.5-5.1)
[2024-07-16] MEDS ORDERED: VOLTAREN - GENE75 MG PO (20:15)
[2024-07-16 20:40] VITALS: BP 147/86
[2024-07-16 20:45] VITALS: BP 147/86
== END 2024-07-16 20:46 | disposition home or self-care (01) | DRG 554 ==
LOC: ED 18:38
PROVIDERS: Family Medicine
DX: M17.12 Unilateral primary osteoarthritis, left knee (principal)